=== PATIENT | male | born 1975 | race African-American/Black ===

== ENCOUNTER 2023-09-08 22:24 | Emergency (ER) | payer OTHER ==
[~2023-09-08] VITALS: Ht 190.5 cm; Wt 118.0 kg
[2023-09-08 22:43] VITALS: BP 132/75; PULSE 85; RESP 14; TEMP 98.3; O2SAT 97
[2023-09-09] MEDS ORDERED: ALBUTEROL (0.083%) 2.5MG/3ML NEB HHN ONE (02:30)
== END 2023-09-09 03:26 | disposition left against medical advice (07) ==
LOC: ER 22:24
DX: R07.9 Chest pain, unspecified (principal); R42 Dizziness and giddiness; J02.9 Acute pharyngitis, unspecified; R06.02 Shortness of breath
CPT/HCPCS: 99284; 87426; 87804 ×2; 93005; C9803